=== PATIENT | male | born 1960 ===

== ENCOUNTER 2020-01-22 04:17 | Emergency (ER) | payer OTHER ==
[2020-01-22] MEDS ORDERED: ONDANSETRON 2MG/ML, 2ML ONE (05:30)
[2020-01-22] MEDS ORDERED: LORazepam 2 MG/ML, 1ML ONE (05:31)
== END 2020-01-22 04:49 ==
LOC: ED 04:40
DX: F10.129 Alcohol abuse with intoxication, unspecified (principal); Z53.21 Procedure and treatment not carried out due to patient leaving prior to being seen by health care provider

== ENCOUNTER 2020-05-28 20:12 | Emergency (ER) | payer SELFPAY ==
[~2020-05-28] VITALS: Ht 170.2 cm; Wt 65.0 kg
--- NOTE | 2020-05-28 20:30 | NUR ---
task rn: pt here for chest pain that started approx 2 hrs ago. pain is substernal and non radiating. pt also has productive cough x 2 days. pt is + for etoh. pthas had 4-5 beers. pt also fell and hit his head yesterday with no loc. pt was given 324 mg asa by remsa. pt placed on personnel monitor and pulse ox. vss. report to Celine ROSENTHAL
[2020-05-28] MEDS ORDERED: LORazepam 2 MG/ML, 1ML IVPush ONE (21:00)
[2020-05-28] MEDS ORDERED: SODIUM CHLORIDE 0.9% 1,000ML IVBOLUS ONE (21:00)
--- NOTE | 2020-05-28 21:05 | NUR ---
PATIENT REPORS HAVING HISTORY OF ETOH WITHDRAWAL SEIZURES. PATIENT TREMULOUS. SEIZURE PADS APPLIED TO BILATERAL RAILS FOR SAFETY
[2020-05-28] MEDS ORDERED: LORazepam 2 MG/ML, 1ML ONE (21:06)
[2020-05-28 21:10] LABS: BASOPHILS % (AUTO) 1 % (0-1); EOSINOPHILS % (AUTO) 0 % (1-7); LYMPHOCYTES % (AUTO) 19 % (22-44); MEAN CORPUSCULAR HEMOGLOBIN 30.3 pg (27.5-34.5); MEAN CORPUSCULAR HGB CONC 33.8 g/dL (33.2-36.2); MEAN PLATELET VOLUME 7.1 fL (7.4-10.4); MONOCYTES % (AUTO) 9 % (2-9); NEUTROPHILS % (AUTO) 70 % (42-75); PLATELET COUNT 461 x10^3/uL (130-400); RED BLOOD COUNT 4.64 x10^6/uL (4.38-5.82); RED CELL DISTRIBUTION WIDTH 17.9 % (9.4-14.8)
[2020-05-28 21:13] LABS: MD NO
--- NOTE | 2020-05-28 21:15 | NUR ---
BROOK MARTINEZ NOTIFIED OF PATIENT CIWA SCORE. PATIENT REPORTS LAST ETOH BEVERAGE ~ 5 HOURS AGO. ATIVAN AND IVF ORDERED AND ADMINISTERED. CALL GARCIA IN REACH. SAFETY MAINTAINED. WILL CONTINUE TO MONITOR.
[2020-05-28 21:18] LABS: ALANINE AMINOTRANSFERASE 32 U/L (12-78); ALBUMIN 3.1 g/dL (3.4-5.0); ANION GAP 12 mmol/L (5-15); CALCIUM 8.1 mg/dL (8.5-10.1); CHLORIDE 112 mmol/L (98-107)
[2020-05-28 21:22] LABS: ALKALINE PHOSPHATASE 103 U/L (45-117); BILIRUBIN,TOTAL 0.3 mg/dL (0.2-1.0); TOTAL PROTEIN 7.4 g/dL (6.4-8.2); TROPONIN I < 0.015 ng/mL (0.000-0.045)
--- NOTE | 2020-05-28 21:38 | NUR ---
PATIENT TRANSFERRED TO CT AT THIS TIME
[2020-05-28] MEDS ORDERED: OMNIPAQUE 350 MG/ML, 100ML BOTTLE ONE (21:45)
--- NOTE | 2020-05-28 21:55 | NUR ---
RN REQUESTED UA FROM PATIENT. CIWA SCORE = 4 AT THIS TIME. PATIENT REPORTS HE DOESNT FEEL TREMULOUS AT THIS TIME. WILL CONTINUE TO MONITOR. SAFETY MAINTAINED
--- NOTE | 2020-05-28 22:40 | NUR ---
PATIENT REQUESTING FOOD AND COFFEE. NO TREMORS VISUALIZED AT THIS TIME. SEIZURE PADS REMAIN IN PLACE. A&OX4. IVF COMPLETED. US OBTAINED AND SENT. WILL CONTINUE TO MONITOR.
[2020-05-28 22:42] LABS: MICROSCOPIC AUTO
--- NOTE | 2020-05-28 22:49 | NUR ---
DECAF COFFEE AND DANILO CRACKERS APPROVED BY BROOK MARTINEZ. THESE WERE PROVIDED TO PATIENT. BROOK MARTINEZ AWARE OF HR 115 AND STILL HAVING CP AT THIS TIME. WILL CONTINUE TO MONITOR. RESTING IN BED WITH EYES CLOSED. FLACC 0
[2020-05-28 22:53] LABS: AMPHETAMINE SCREEN, URINE Negative (Negative); BARBITURATE SCREEN, URINE Negative (Negative); BENZODIAZEPINE SCREEN, URINE Negative (Negative); CANNABINOID SCREEN, URINE Negative (Negative); COCAINE SCREEN, URINE Negative (Negative); METHADONE SCREEN, URINE Negative (Negative); OPIATE SCREEN, URINE Negative (Negative)
--- NOTE | 2020-05-28 23:15 | NUR ---
DISCHARGE INSTRUCTIONS REVIEWED WITH PATIENT. NO PRESCRIPTIONS AT THIS TIME. PATIENT STATES HE WOULD LIKE TO GO TO [place] FOR ALCOHOL ADDICTION TREATMENT. ALSO REPORTS HIS FIRST NAME IS SPELT WRONG AND HIS YEAR IS WRONG. HE HAS TOLD ME 1960 AND [place] FOR ALL PATIENT VERIFIERS DURING MEDICATION ADMIN. REGISTRATION NOTIFIED. STEADY GAIT IN ROOM. DENIES CP AT THIS TIME. NO SOB NOTED. CLEAR SPEECH
[2020-05-28 23:22] VITALS: BP 115/59
== END 2020-05-28 23:24 | disposition home or self-care (01) ==
LOC: ED 21:07
DX: R07.89 Other chest pain (principal); R10.30 Lower abdominal pain, unspecified; F10.229 Alcohol dependence with intoxication, unspecified; R00.0 Tachycardia, unspecified; Y90.0 Blood alcohol level of less than 20 mg/100 ml
CPT/HCPCS: 36415; 71045; 74177; 80053; 80307; 80320; 81001; 82140; 83690; 84484; 85025; 93005; 96361; 96374; 99285; J2060; J7030; Q9967; G0480